=== PATIENT | female | born 1990 | race Caucasian/White ===

== ENCOUNTER 2016-08-04 00:50 | Emergency (ER) | payer SELFPAY ==
[~2016-08-04] VITALS: Ht 165.1 cm; Wt 90.0 kg
[~2016-08-04 00:50] MED LIST: NAPR-576 PO; Z.0.NO CURRENT MEDS
[2016-08-04 00:51] VITALS: BP 164/85; PULSE 109; RESP 16; TEMP 98.1; O2SAT 98
--- NOTE | 2016-08-04 02:56 | PD ---
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 She denies any other injuries. She states she has pain along the lateral aspect of her hand up into her forearm. Pain is mild to moderate. Worse with palpation and movement of the fingers. She denies any numbness or tingling. No other injury. [facility] Past Medical History Medical History: Denies Significant Hx Diminished Hearing: No Tetanus Vaccination: Unknown Influenza Vaccination: No ?: Not LMP: 2 WEEKS AGO Past Surgical History Surgical History: No Previous Surgery Social History Alcohol Use: Yes Tobacco Use: Yes Substance Use: No Allergies-Medications (Allergen,Severity, Reaction): Coded Allergies: No Known Allergies (Verified , 08/04/16) Reported Meds & Prescriptions Reported Meds & Active Scripts Active Diclofenac Sodium DR (Diclofenac Sodium) 75 Mg Tabdr 75 Mg PO BID Review of Systems Except as stated in HPI: all other systems reviewed are Neg Physical Exam Narrative GENERAL: Well-developed, well-nourished in no apparent distress. Nontoxic appearing. The patient smells of EtOH. HEAD: Normocephalic, atraumatic. EYES: Pupils equal round and reactive. Extraocular motions intact. No scleral icterus. No injection or drainage. ENT: Nose clear. Throat without erythema, tonsillar hypertrophy or exudate. Uvula midline. Airway patent. NECK: Trachea midline. Supple, nontender, moves head freely. No central bony tenderness or spasm. CARDIOVASCULAR: Regular rate and rhythm without murmurs, gallops, or rubs. RESPIRATORY: Clear to auscultation. Breath sounds equal bilaterally. No wheezes , rales, or rhonchi. GASTROINTESTINAL: Abdomen soft, non-tender, nondistended. No hepato-splenomegaly , or palpable masses. No guarding. EXTREMITIES: No clubbing, cyanosis. Examination of the right hand reveals pain and swelling over the fourth and fifth metacarpals. She has some point tenderness over the base of the fifth metacarpal. He is no pain in the fingers. She is able to extend and flex her fingers freely. No pain in the wrist. She is able to extend and flex freely. The elbow and shoulder are unremarkable. The left upper extremity as well as lower extremities are without localizing bony tenderness or deformity. BACK: Nontender without deformity. No flank tenderness. NEUROLOGICAL: Awake, alert and oriented x 3 .Cranial nerves grossly intact. Motor and sensory grossly within normal limits. Normal speech. Data Data Last Documented VS Vital Signs Date Time Temp Pulse Resp B/P Pulse Ox O2 Delivery O2 Flow Rate FiO2 08/04/16 01:33 16 08/04/16 00:51 98.1 109 164/85 98 Orders Hand, Complete ([id number]) (08/04/16 02:45) Ice/Cold Pack (08/04/16 02:45) MDM Medical Decision Making Medical Screen Exam Complete: Yes Emergency Medical Condition: Yes Medical Record Reviewed: Yes Interpretation(s) Right hand: Negative for acute fracture. Differential Diagnosis MDM: High Differential diagnoses: Fracture, sprain, strain, dislocation, contusion, neurovascular injury Narrative Course X-ray of the right hand is negative for bony injury. Patient's given Escobar wrap, Lortab 5 a grams by mouth for pain here in the ER. This is right hand contusion Diagnosis Primary Impression: Contusion of right hand Patient Instructions: General Instructions, Narcotic given in the ED Additional Instructions: Rest. Elevation. Diclofenac. Escobar wrap. Follow-up with medical doctor in one week. Return to the ER for emergencies Med/Other Pt SpecificInfo: Prescription(s) given Scripts Diclofenac Sodium DR 75 Mg Tabdr75 Mg PO BID #20 TAB Prov:Barb Ferrera MD 08/04/16 Disposition: 01 DISCHARGE HOME Condition: Stable Chris Castro Aug 04, 2016 02:56
[2016-08-04] MEDS ORDERED: DICL75TA PO (03:14)
[2016-08-04] MEDS ORDERED: ACETAMINOPHEN/HYDROcodone 325 MG/5 MG TAB PO ONE (03:15)
--- NOTE | 2016-08-04 04:14 | RADRPT ---
EXAM DATE/TIME: 08/04/2016 03:03 [facility] COMPARISON: No previous studies available for comparison. INDICATIONS : Punched dresser pain in fifth metacarpal. MEDICAL HISTORY : None. SURGICAL HISTORY : None. ENCOUNTER: Initial ACUITY: 1 day PAIN SCORE: 0/10 LOCATION: Right hand FINDINGS: Three view examination of the right hand demonstrates soft tissue swelling without dislocation, or fr acture. The carpal bones appear intact. The interphalangeal and metacarpophalangeal joints are int act. Bony mineralization is normal. CONCLUSION: No acute fracture. Dane Hancock MD on August 04, 2016 at 4:12 Board Certified Radiologist. This report was verified electronically.
== END 2016-08-04 03:00 | disposition home or self-care (01) ==
LOC: NEPK 00:50
DX: S60.221A Contusion of right hand, initial encounter (principal); W22.09XA Striking against other stationary object, initial encounter; Z72.0 Tobacco use
CPT/HCPCS: 73130; 99283

== ENCOUNTER 2017-04-21 16:08 | Emergency (ER) | payer MEDICAID ==
[~2017-04-21 16:08] MED LIST changes: +DICL75TA PO; -NAPR-576 PO; -Z.0.NO CURRENT MEDS
[2017-04-21 16:10] VITALS: BP 139/70; PULSE 85; RESP 16; TEMP 98.8; O2SAT 99
--- NOTE | 2017-04-21 18:03 | PD ---
HPI Chief Complaint: Musculoskeletal Complaint Time Seen by Provider: 18:03 Travel History International Travel<30 days: No Contact w/Intl Traveler<30days: No Traveled to known affect area: No History of Present Illness HPI Pt is a 26-year-old female presenting to the emergency department for evaluation of chronic back pain. Patient states that her pain is worse today. She denies any new injury or trauma. Pain is localized to the mid upper back , she states that she is taking [id number] medications with no relief of her symptoms. She reports that her pain is an 8 out of 10, she denies any shortness of breath. She denies any chest pain. Patient states that she comes here for this and we tell her that there is nothing wrong. She denies any alleviating factors, pain is exacerbated with movement. PFSH Past Medical History Diminished Hearing: No Musculoskeletal: Yes (back pain) ?: Not LMP: 04/07/17 Social History Alcohol Use: Yes Tobacco Use: Yes Substance Use: No Allergies-Medications (Allergen,Severity, Reaction): Coded Allergies: No Known Allergies (Verified , 08/04/16) Reported Meds & Prescriptions Reported Meds & Active Scripts Active Diclofenac Sodium DR (Diclofenac Sodium) 75 Mg Tabdr 75 Mg PO BID Review of Systems Except as stated in HPI: all other systems reviewed are Neg Musculoskeletal: Positive: Myalgias, Arthralgias Physical Exam Narrative GENERAL: Well-developed, well-nourished, well-appearing female. SKIN: Warm and dry. HEAD: Normocephalic. EYES: No scleral icterus. No injection or drainage. CARDIOVASCULAR: Regular rate RESPIRATORY: No accessory muscle use, no nasal flaring, no retractions noted. BACK: No obvious deformity. Data Data Last Documented VS Vital Signs Date Time Temp Pulse Resp B/P (MAP) Pulse Ox O2 Delivery O2 Flow Rate FiO2 04/21/17 16:10 98.8 85 16 139/70 (93) 99 MDM Medical Decision Making Medical Screen Exam Complete: Yes Emergency Medical Condition: Yes Interpretation(s) Vital Signs Date Time Temp Pulse Resp B/P (MAP) Pulse Ox O2 Delivery O2 Flow Rate FiO2 04/21/17 16:10 98.8 85 16 139/70 (93) 99 Differential Diagnosis Strain versus spasm versus discogenic pain versus other Narrative Course Patient is a well-appearing 26-year-old female presenting for evaluation of mid upper back pain that is exacerbated. Patient vital signs are stable, patient is awaiting bed placement. Patient is well-appearing. Patient stated that she wanted to leave, she was tired of waiting. Patient Wang Call has decided to leave the hospital against medical advice. This patient has the capacity to refuse care and understands the risks of leaving, including permanent disability and/or , and has had an opportunity to ask questions about her condition. The patient has been informed that she may return for care at any time, and follow up has been arranged/ advised. Diagnosis Primary Impression: Left against medical advice Christiane Haas Apr 21, 2017 18:03
== END 2017-04-21 18:00 | disposition left against medical advice (07) ==
LOC: NED 16:08
DX: M54.9 Dorsalgia, unspecified (principal); G89.29 Other chronic pain; Z72.0 Tobacco use
CPT/HCPCS: 99281

== ENCOUNTER 2017-09-20 09:00 | Emergency (ER) | payer MEDICAID, OTHER ==
[~2017-09-20] VITALS: Ht 167.6 cm; Wt 76.0 kg
[2017-09-20 09:10] VITALS: BP 139/74; PULSE 76; RESP 16; TEMP 98.6; O2SAT 100
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
[2017-09-20] MEDS ORDERED: CYCL5TAB PO (09:35)
[2017-09-20] MEDS ORDERED: IBUP-232 PO (09:35)
== END 2017-09-20 10:13 | disposition home or self-care (01) ==
LOC: NEPD 09:00
DX: S13.4XXA Sprain of ligaments of cervical spine, initial encounter (principal); F17.200 Nicotine dependence, unspecified, uncomplicated; V43.92XA Unspecified car occupant injured in collision with other type car in traffic accident, initial encounter; Y92.488 Other paved roadways as the place of occurrence of the external cause
CPT/HCPCS: 99283